=== PATIENT | female | born 1985 | race Caucasian/White ===

== ENCOUNTER 2017-08-11 15:37 | Emergency (ER) | payer OTHER ==
[~2017-08-11] VITALS: Ht 170.2 cm; Wt 80.3 kg
[~2017-08-11 15:37] MED LIST: BENTYL 20 MG TA20 M1 PO; CARAFATE 1 GM TA1 GM PO; PREVACID15 MG PO; TRAZODONE HCL50 MG PO; TRINESSA LO TA1 EACH PO; VENLAFAXIN75 MG/1 T2 PO
[2017-08-11] MEDS ORDERED: ADIPEX-P37.5 MG PO (15:56)
[2017-08-11] MEDS ORDERED: NAPROSYN500 M1 PO (17:07)
[2017-08-11 17:30] VITALS: BP 138/84
== END 2017-08-11 17:31 | disposition home or self-care (01) ==
LOC: M.ERS 15:37
DX: S93.492A Sprain of other ligament of left ankle, initial encounter (principal); F41.9 Anxiety disorder, unspecified; F32.9 Major depressive disorder, single episode, unspecified; W10.8XXA Fall (on) (from) other stairs and steps, initial encounter; Y93.89 Activity, other specified; Y92.89 Other specified places as the place of occurrence of the external cause; Y99.8 Other external cause status

== ENCOUNTER 2017-08-30 15:55 | Emergency (ER) | payer OTHER ==
[~2017-08-30] VITALS: Ht 170.2 cm; Wt 81.7 kg
[~2017-08-30 15:55] MED LIST changes: +ADIPEX-P37.5 MG PO; +NAPROSYN500 M1 PO
[2017-08-30 16:34] LABS: URINE BILIRUBIN NEGATIVE (Negative); URINE BLOOD 2+ (Negative); URINE CLARITY CLEAR; URINE COLOR YELLOW; URINE GLUCOSE-RANDOM NEGATIVE (Negative); URINE KETONES NEGATIVE (Negative); URINE LEUKOCYTES-REFLEX 1+ (Negative); URINE NITRITE-REFLEX POSITIVE (Negative); URINE PROTEIN 1+ (Negative); URINE UROBILINOGEN 0.2 E.U./dl (0.2-1.0)
[2017-08-30 16:41] LABS: HEMATOCRIT 36.7 % (37.0-47.0); HEMOGLOBIN 12.3 gm/dL (12.0-15.0); MCH 31.4 pg (26.0-34.0); MCHC 33.5 g/dL (28.0-37.0); MCV 93.9 fL (80.0-100.0); MPV 8.9 fl. (7.2-11.1); NUCLEATED RBCS 0 /100WBC; PLATELET COUNT* 211 thou/uL (150-400); RBC 3.91 mil/uL (4.20-5.00); RDW-CV 13.2 % (10.5-14.5)
[2017-08-30 16:49] LABS: CALCIUM 8.8 mg/dL (8.5-10.1); CREATININE 0.8 mg/dL (0.6-1.3); POTASSIUM 4.1 mmol/L (3.5-5.1)
[2017-08-30 16:53] LABS: ALBUMIN 3.7 g/dL (3.4-5.0); TOTAL BILIRUBIN 0.5 mg/dL (<0.1-1.0); TOTAL PROTEIN 7.3 g/dL (6.4-8.2)
[2017-08-30 16:55] LABS: BACTERIA-REFLEX >30 Many /HPF (None Seen); CASTS None Seen /LPF (None Seen); CRYSTALS None Seen /LPF (None Seen); MUCUS None Seen strn/LPF (None Seen); SQUAMOUS 4-10 Moderate /LPF (0-3)
[2017-08-30 16:56] LABS: URINE RBC 3-10 Few /HPF (0-2); URINE WBC-REFLEX >25 Many /HPF (0-5); WBC CLUMPS Few (None Seen)
[2017-08-30 17:21] LABS: ABSOLUTE EOSINOPHILS 0.1 thou/uL (0.0-0.7); ABSOLUTE LYMPHOCYTES 0.8 thou/uL (0.8-5.3); ABSOLUTE NEUTROPHILS 8.1 thou/uL (1.6-8.1)
[2017-08-30 17:22] LABS: PLATELET ESTIMATE ADEQUATE
[2017-08-30] MEDS ORDERED: MACROBID 100 M100 M1 PO (18:06)
[2017-08-30] MEDS ORDERED: ZANAFLEX4 MG PO (18:06)
[2017-08-30] MEDS ORDERED: MEDROLDOSEPACK PO (18:06)
[2017-08-30] MEDS ORDERED: NAPROSYN500 MG PO (18:06)
[2017-08-30] MEDS ORDERED: ZOFRAN4 MG PO (18:06)
[2017-08-30 18:24] VITALS: BP 116/51
== END 2017-08-30 18:33 | disposition home or self-care (01) ==
LOC: M.ERS 15:55
PROVIDERS: Nurse Practitioner Family
DX: N20.0 Calculus of kidney (principal); M54.31 Sciatica, right side; F43.10 Post-traumatic stress disorder, unspecified; F32.9 Major depressive disorder, single episode, unspecified; F41.9 Anxiety disorder, unspecified

== ENCOUNTER 2020-04-16 15:09 | Emergency (ER) | payer OTHER ==
[~2020-04-16] VITALS: Ht 170.2 cm; Wt 72.6 kg
[~2020-04-16 15:09] MED LIST changes: +MACROBID 100 M100 M1 PO; +MEDROLDOSEPACK PO; +NAPROSYN500 MG PO; +ZANAFLEX4 MG PO; +ZOFRAN4 MG PO
[2020-04-16] MEDS ORDERED: JUNEL FE 1-201 EACH PO (15:33)
[2020-04-16] MEDS ORDERED: CELEXA 10 MG TA10 M1 PO (15:33)
[2020-04-16] MEDS ORDERED: ADDERALL 10 MG10 MG PO (15:33)
[2020-04-16 15:40] LABS: ABSOLUTE BASOPHILS 0.1 thou/uL (0.0-0.2); ABSOLUTE EOSINOPHILS 0.1 thou/uL (0.0-0.7); ABSOLUTE LYMPHOCYTES 1.6 thou/uL (0.8-5.3); ABSOLUTE MONOCYTES 0.6 thou/uL (0.0-1.2); ABSOLUTE NEUTROPHILS 3.2 thou/uL (1.6-8.1); BASOPHILS 1.2 %; EOSINOPHILS 1.8 %; HEMATOCRIT 39.4 % (37.0-47.0); HEMOGLOBIN 13.4 gm/dL (12.0-15.0); LYMPHOCYTES 28.8 %; MCH 31.2 pg (26.0-34.0); MCHC 34.2 g/dL (28.0-37.0); MCV 91.2 fL (80.0-100.0); MONOCYTES 11.3 %; MPV 9.2 fl. (7.2-11.1); NUCLEATED RBCS 0 /100WBC; PLATELET COUNT* 293 thou/uL (150-400); POLYS 56.9 %; RBC 4.32 mil/uL (4.20-5.00); RDW-CV 13.2 % (10.5-14.5); WBC 5.7 thou/uL (4.0-11.0)
[2020-04-16 16:30] LABS: URINE BILIRUBIN NEGATIVE (Negative); URINE BLOOD NEGATIVE (Negative); URINE CLARITY CLEAR; URINE COLOR YELLOW; URINE GLUCOSE-RANDOM NEGATIVE (Negative); URINE KETONES NEGATIVE (Negative); URINE LEUKOCYTES-REFLEX NEGATIVE (Negative); URINE NITRITE-REFLEX NEGATIVE (Negative); URINE PROTEIN NEGATIVE (Negative); URINE SPECIFIC GRAVITY 1.025 (1.005-1.030); URINE UROBILINOGEN 0.2 E.U./dl (0.2-1.0)
[2020-04-16 16:34] LABS: CALCIUM 8.5 mg/dL (8.5-10.1); CREATININE 0.9 mg/dL (0.6-1.3); POTASSIUM 3.9 mmol/L (3.5-5.1)
[2020-04-16 16:38] LABS: ALBUMIN 3.8 g/dL (3.4-5.0); TOTAL BILIRUBIN 0.4 mg/dL (<0.1-1.0); TOTAL PROTEIN 6.9 g/dL (6.4-8.2)
[2020-04-16 17:25] VITALS: BP 127/77
== END 2020-04-16 17:26 | disposition home or self-care (01) ==
LOC: M.ERS 15:09
PROVIDERS: Family Medicine; Nurse Practitioner Family
DX: B34.9 Viral infection, unspecified (principal); R55 Syncope and collapse; R19.7 Diarrhea, unspecified; F41.9 Anxiety disorder, unspecified; F32.9 Major depressive disorder, single episode, unspecified; F90.9 Attention-deficit hyperactivity disorder, unspecified type; Z20.828 Contact with and (suspected) exposure to other viral communicable diseases; Z79.899 Other long term (current) drug therapy

== ENCOUNTER 2020-07-10 13:25 | Emergency (ER) | payer OTHER ==
[~2020-07-10] VITALS: Ht 170.2 cm; Wt 77.1 kg
[~2020-07-10 13:25] MED LIST changes: +ADDERALL 10 MG10 MG PO; +CELEXA 10 MG TA10 M1 PO; +JUNEL FE 1-201 EACH PO
[2020-07-10 14:43] VITALS: BP 126/85
== END 2020-07-10 14:44 | disposition home or self-care (01) ==
LOC: M.ERS 13:25
DX: S00.83XA Contusion of other part of head, initial encounter (principal); W22.8XXA Striking against or struck by other objects, initial encounter; Y93.89 Activity, other specified; Y92.89 Other specified places as the place of occurrence of the external cause; Y99.8 Other external cause status

== ENCOUNTER → 2020-07-17 | Outpatient (CLI) | payer OTHER ==
--- NOTE | 2020-07-17 15:49 | 2DMMODE ---
[place] [address] 2 D/M-MODE ECHOCARDIOGRAM Name: MONAE SORIANO I Room: [facility]#: [id number] Admission: 07/17/20 Attend Phys: Mark Plaza, Discharge: Date of : 87 Date of Service: 07/17/20 1548 Report #: [id number] THIS REPORT FOR: cc: ABBIE BARRETT DEBRA L FNP Blick, David R. MD [facility] ~ APPROVED REPORT Study performed: 07/17/2020 13:40:41 EXAM: Comprehensive 2D, Doppler, and color-flow Echocardiogram / Bubble Study Patient Location: Out-Patient BSA: 1.92 HR: 86 bpm BP: 115/75 mmHg Other Information Study Quality: Excellent Indications Syncope 2D Dimensions IVSd: 9.70 (7-11mm) LVOT Diam: 20.15 (18-24mm) LVDd: 44.55 mm PWd: 8.74 (7-11mm) Ascending Ao: 25.67 (22-36mm) LVDs: 26.82 (25-40mm) Aortic Root: 25.98 mm Volumes Left Atrial Volume (Systole) LA ESV Index: 16.20 mL/m2 Aortic Valve AoV Peak Canelo.: 1.46 m/s AO Peak Gr.: 8.53 mmHg LVOT Max P.63 mmHg AO Mean Gr.: 4.97 mmHg LVOT Mean P.39 mmHg LVOT Max V: 1.47 m/s AO V2 VTI: 28.22 cm LVOT Mean V: 0.97 m/s ANDREA (VTI): 3.09 cm2 LVOT V1 VTI: 27.35 cm Mitral Valve E/A Ratio: 1.33 [place] [address] 2 D/M-MODE ECHOCARDIOGRAM Name: MONAE SORIANO [id number] Ad[facility]: 07/17/20 Attend Phys: Mark Plaza, Discharge: Date of : 87 Date of Service: 07/17/20 1548 Report #: [id number] MV Decel. Time: 182.33 ms MV E Max Canelo.: 0.81 m/s MV PHT: 52.88 ms MVA (PHT): 4.16 cm2 TDI E/Lateral E': 6.23 E/Medial E': 9.00 Medial E' Canelo.: 0.09 m/s Lateral E' Canelo.: 0.13 m/s Pulmonary Valve PV Peak Canelo.: 1.12 m/s PV Peak Gr.: 5.03 mmHg Tricuspid Valve RAP Estimate: 5.00 mmHg TR Peak Gr.: 19.65 mmHg RVSP: 24.65 mmHg PA Pressure: 24.65 mmHg Left Ventricle The left ventricle is normal size. There is normal LV segmental wall motion. There is normal left ventricular wall thickness. Left ventricular systolic function is normal. The left ventricular ejection fraction is within the normal range. LVEF is 55-60%. The left ventricular diastolic function is normal. Right Ventricle The right ventricle is normal size. The right ventricular systolic function is normal. Atria The left atrium size is normal. Injection of bubbles documented no interatrial shunt. The right atrium size is normal. Aortic Valve The aortic valve is normal in structure. No aortic regurgitation is present. There is no aortic valvular stenosis. Mitral Valve The mitral valve is normal in structure. Trace mitral regurgitation. No evidence of mitral valve stenosis. Tricuspid Valve The tricuspid valve is normal in structure. Mild tricuspid regurgitation[place] [address] 2 D/M-MODE ECHOCARDIOGRAM Name: MONAE SORIANO I Room: [facility]#: [id number] Admission: 07/17/20 Attend Phys: Mark Plaza, Discharge: Date of : 87 Date of Service: 07/17/20 1548 Report #: [id number] The pulmonary valve is normal in structure. There is no pulmonic valvular regurgitation. Great Vessels The aortic root is normal in size. IVC is normal in size and collapses >50% with inspiration. Pericardium There is no pericardial effusion. <Conclusion> Left ventricular systolic function is normal. The left ventricular ejection fraction is within the normal range. Injection of bubbles documented no interatrial shunt. <ELECTRONICALLY SIGNED> By: Dany Higuera MD, [facility] 07/17/20 1548 1548 1548 Dany Higuera MD, FACC /INF
== END ==
LOC: M.CRD 13:15
PROVIDERS: ATTEND Internal Medicine Cardiovascular Disease
DX: I34.0 Nonrheumatic mitral (valve) insufficiency (principal)

== ENCOUNTER → 2020-09-13 | Outpatient (CLI) | payer OTHER ==
[2020-09-13 13:16] LABS: ABSOLUTE EOSINOPHILS 0.1 thou/uL (0.0-0.7); ABSOLUTE LYMPHOCYTES 1.6 thou/uL (0.8-5.3); ABSOLUTE MONOCYTES 0.7 thou/uL (0.0-1.2); ABSOLUTE NEUTROPHILS 4.2 thou/uL (1.6-8.1); BASOPHILS 0.7 %; EOSINOPHILS 2.1 %; HEMATOCRIT 41.3 % (37.0-47.0); HEMOGLOBIN 13.9 gm/dL (12.0-15.0); LYMPHOCYTES 24.1 %; MCHC 33.6 g/dL (28.0-37.0); MCV 92.1 fL (80.0-100.0); MONOCYTES 10.1 %; MPV 8.5 fl. (7.2-11.1); NUCLEATED RBCS 0 /100WBC; PLATELET COUNT* 345 thou/uL (150-400); RBC 4.48 mil/uL (4.20-5.00); RDW-CV 13.5 % (10.5-14.5); WBC 6.7 thou/uL (4.0-11.0)
[2020-09-13 13:29] LABS: PROTIME 10.5 Seconds (9.20-11.50)
[2020-09-13 13:33] LABS: ALBUMIN 4.5 g/dL (3.4-5.0); CALCIUM 9.8 mg/dL (8.5-10.1); CREATININE 0.8 mg/dL (0.6-1.3); POTASSIUM 4.6 mmol/L (3.5-5.1); TOTAL BILIRUBIN 0.6 mg/dL (<0.1-1.0); TOTAL PROTEIN 8.2 g/dL (6.4-8.2)
== END ==
LOC: M.LAB 12:45
PROVIDERS: ATTEND Internal Medicine Cardiovascular Disease
DX: R00.2 Palpitations (principal); R55 Syncope and collapse; R23.8 Other skin changes